=== PATIENT | male | born 1950 | race Hispanic/Latino ===

== ENCOUNTER 2021-07-13 13:58 | Inpatient (IN) | payer BC ==
[~2021-07-13] VITALS: Ht 152.4 cm; Wt 60.0 kg
[2021-07-13 14:33] LABS: BASOPHILS % (AUTO) 0.9 % (0.0-5.0); EOSINOPHILS % (AUTO) 1.1 % (0.0-8.0); HEMATOCRIT 42.3 % (42-54); LYMPHOCYTES % (AUTO) 18.9 % (21.0-51.0); MEAN CORPUSCULAR HEMOGLOBIN 30.9 pg (27.0-33.0); MEAN CORPUSCULAR HGB CONC 34.8 g/dL (32.0-36.0); MEAN CORPUSCULAR VOLUME 89.1 fL (79-99); NEUTROPHILS % (AUTO) 71.7 % (40.0-77.0); PLATELET COUNT (AUTO) 297 K/uL (130-400); RED BLOOD CELL COUNT(AUTO) 4.75 MIL/uL (4.50-6.20); RED CELL DISTRIBUTION WIDTH 12.3 % (11.0-15.5); WHITE BLOOD COUNT (AUTO) 10.8 K/uL (4.8-10.8)
[2021-07-13 14:45] LABS: CREATININE 1.2 mg/dL (0.5-1.5); INR 0.97 (0.85-1.15); POTASSIUM 4.2 mmol/L (3.5-5.1); PROTHROMBIN TIME 10.6 SEC (9.6-11.6)
[2021-07-13 14:46] LABS: PARTIAL THROMBOPLASTIN TIME 25.6 SEC (26.3-35.5)
[2021-07-13 14:49] LABS: ALBUMIN 3.8 g/dL (3.5-5.0); BILIRUBIN,TOTAL 0.5 mg/dL (0.2-1.0); TOTAL PROTEIN, SERUM 7.6 g/dL (6.0-8.3)
[2021-07-13] MEDS ORDERED: 0.9%NACL 1000ML 1,000 ML IV ONE (16:00)
[2021-07-13] MEDS ORDERED: IOHEXOL 350 MG/ML 100ML INFUS..BTL IV ONE (16:00)
[2021-07-13] MEDS ORDERED: ASPIRIN 81MG CHEW TAB PO ONE (17:00)
[2021-07-13 17:06] LABS: APPEARANCE,URINE Clear (CLEAR); BILIRUBIN,URINE Negative (NEGATIVE); COLOR,URINE Yellow (YELLOW); GLUCOSE, URINE (UA) >=1000 mg/dL (NEGATIVE); KETONES,URINE Trace mg/dL (NEGATIVE); LEUKOCYTE ESTERASE ,URINE Negative (NEGATIVE); NITRATE,URINE Negative (NEGATIVE); OCCULT BLOOD,URINE Negative (NEGATIVE); PH,URINE 5.5 (5.0-8.0); PROTEIN,URINE POS 2+ mg/dL (NEGATIVE)
[2021-07-13] MEDS ORDERED: LACTULOSE 20 GM/30 ML UDCUP PO PRN (17:30)
[2021-07-13] MEDS ORDERED: ONDANSETRON 4MG INJ IV PRN (17:30)
[2021-07-13] MEDS ORDERED: MAG/ALUM/SIMETH 30 ML UDCUP PO PRN (17:30)
[2021-07-13] MEDS ORDERED: GUAIFENESIN-DM 200/20 MG 10 ML PO PRN (17:30)
[2021-07-13] MEDS ORDERED: ACETAMINOPHEN 325 MG TAB PO PRN ×2 (17:30)
[2021-07-13 17:33] LABS: BACTERIA,URINE Rare /HPF (None Seen); MUCUS,URINE Rare LPF (None Seen); RBC,URINE 0-1 /HPF (0-1); SQUAMOUS EPITHELIAL CELL,UR Rare /HPF (0-2); WBC,URINE 0-1 /HPF (0-1)
[2021-07-13 17:52] LABS: ALCOHOL, BLOOD 6 mg/dL (0-10); CHOLESTEROL 280 mg/dL (<200); HDL CHOLESTEROL 48 mg/dL (29-71); LDL DIRECT 181 mg/dL (0-99); TRIGLYCERIDES 196 mg/dL (30-200)
[2021-07-13] MEDS: HYDRALAZINE 20MG/ML VIAL IV PRN (18:05)
[2021-07-13 19:17] LABS: AMPHET/METH SCREEN,URINE NEGATIVE (NEGATIVE); BARBITURATE SCREEN, URINE NEGATIVE (NEGATIVE); BENZODIAZEPINES SCREEN,URINE NEGATIVE (NEGATIVE); CANNABINOID SCREEN,URINE NEGATIVE (NEGATIVE); COCAINE SCREEN,URINE NEGATIVE (NEGATIVE); OPIATE SCREEN,URINE NEGATIVE (NEGATIVE); PHENCYCLIDINE SCREEN,URINE NEGATIVE (NEGATIVE)
[2021-07-14 00:10] VITALS: BP 152/85
[2021-07-14] MEDS ORDERED: METF-445 PO (00:17)
[2021-07-14] MEDS ORDERED: LISI10TA24 PO (00:17)
[2021-07-14] MEDS ORDERED: MORPHINE 2 MG SYG ONE (01:48)
[2021-07-14] MEDS ORDERED: MORPHINE 2 MG SYG IVP ONE (02:00)
[2021-07-14 04:00] VITALS: BP 130/69
[2021-07-14 05:26] LABS: HEMATOCRIT 38.1 % (42-54); MEAN CORPUSCULAR HEMOGLOBIN 30.6 pg (27.0-33.0); MEAN CORPUSCULAR HGB CONC 34.9 g/dL (32.0-36.0); MEAN CORPUSCULAR VOLUME 87.8 fL (79-99); RED BLOOD CELL COUNT(AUTO) 4.34 MIL/uL (4.50-6.20); RED CELL DISTRIBUTION WIDTH 12.3 % (11.0-15.5); WHITE BLOOD COUNT (AUTO) 8.8 K/uL (4.8-10.8)
[2021-07-14] MEDS ORDERED: DEXTROSE 50%-WATER 50 ML DISP.SYRIN IV PRN (05:30)
[2021-07-14] MEDS ORDERED: GLUCAGON 1MG KIT 1 MG ML IM PRN (05:30)
[2021-07-14 05:36] LABS: INR 0.99 (0.85-1.15); PROTHROMBIN TIME 10.8 SEC (9.6-11.6)
[2021-07-14 05:45] LABS: HEMOGLOBIN A1C 12.5 % (4.0-6.0)
[2021-07-14] MEDS: INSULIN HUMULIN R 100 UNIT/ML 3ML SQ SCH ×4 (06:00→21:55)
[2021-07-14 06:04] LABS: ALBUMIN 3.3 g/dL (3.5-5.0); BILIRUBIN,TOTAL 0.5 mg/dL (0.2-1.0); POTASSIUM 3.8 mmol/L (3.5-5.1); TOTAL PROTEIN, SERUM 6.6 g/dL (6.0-8.3)
[2021-07-14 09:32] VITALS: BP 137/78
[2021-07-14 12:00] VITALS: BP 153/90
[2021-07-14 16:00] VITALS: BP 144/46
[2021-07-14] MEDS: ASPIRIN 81MG CHEW TAB PO SCH (17:41)
[2021-07-14 20:00] VITALS: BP 139/95
[2021-07-15] VITALS: BP 139/81
[2021-07-15 05:19] VITALS: BP 119/70
[2021-07-15] MEDS: INSULIN HUMULIN R 100 UNIT/ML 3ML SQ SCH ×4 (06:59→21:51)
[2021-07-15] MEDS ORDERED: ATORVASTATIN 20 MG TABLET PO SCH (09:00)
[2021-07-15 09:03] VITALS: BP 153/88
[2021-07-15] MEDS: ASPIRIN 81MG CHEW TAB PO SCH (10:32)
[2021-07-15 11:11] VITALS: BP 167/92
[2021-07-15 16:27] VITALS: BP 150/92
[2021-07-15 20:00] VITALS: BP 175/94
[2021-07-15] MEDS: HYDRALAZINE 20MG/ML VIAL IV PRN (21:48)
[2021-07-15] MEDS: ATORVASTATIN 20 MG TABLET PO SCH (21:48)
[2021-07-16] VITALS (7 sets, daily range): BP systolic 120–160; BP diastolic 76–104
[2021-07-16] MEDS: INSULIN HUMULIN R 100 UNIT/ML 3ML SQ SCH ×4 (05:49→21:00)
[2021-07-16] MEDS: ASPIRIN 81MG CHEW TAB PO SCH (10:05)
[2021-07-16] MEDS: LISINOPRIL 10 MG TABLET PO SCH (10:05)
[2021-07-16] MEDS: HYDRALAZINE 20MG/ML VIAL IV PRN (11:51)
[2021-07-16] MEDS: CEFTRIAXONE 1G VIAL IVP SCH ×2 (12:30→17:26)
[2021-07-16 13:41] LABS: APPEARANCE,URINE Clear (CLEAR); BILIRUBIN,URINE Negative (NEGATIVE); COLOR,URINE Yellow (YELLOW); GLUCOSE, URINE (UA) >=1000 mg/dL (NEGATIVE); KETONES,URINE 15 mg/dL (NEGATIVE); LEUKOCYTE ESTERASE ,URINE Negative (NEGATIVE); NITRATE,URINE Negative (NEGATIVE); OCCULT BLOOD,URINE Negative (NEGATIVE); PROTEIN,URINE 300 mg/dL (NEGATIVE)
[2021-07-16 13:46] LABS: BACTERIA,URINE Rare /HPF (None Seen); RBC,URINE 0-1 /HPF (0-1); SQUAMOUS EPITHELIAL CELL,UR Rare /HPF (0-2); WBC,URINE 0-1 /HPF (0-1)
[2021-07-16] MEDS ORDERED: PHARMACY COMMUNICATION MISC SCH (17:30)
[2021-07-16] MEDS ORDERED: INSULIN GLARGINE 100 UNITS/ML 10 ML VIAL SQ SCH (21:00)
[2021-07-16] MEDS: ATORVASTATIN 20 MG TABLET PO SCH (22:12)
[2021-07-17 03:57] VITALS: BP 120/90
[2021-07-17] MEDS: INSULIN HUMULIN R 100 UNIT/ML 3ML SQ SCH ×3 (06:32→16:30)
[2021-07-17 07:35] LABS: BASOPHILS % (AUTO) 0.8 % (0.0-5.0); EOSINOPHILS % (AUTO) 3.4 % (0.0-8.0); HEMATOCRIT 40.2 % (42-54); LYMPHOCYTES % (AUTO) 14.4 % (21.0-51.0); MEAN CORPUSCULAR HEMOGLOBIN 30.7 pg (27.0-33.0); MEAN CORPUSCULAR HGB CONC 34.3 g/dL (32.0-36.0); MEAN CORPUSCULAR VOLUME 89.3 fL (79-99); MONOCYTES % (AUTO) 10.7 % (3.0-13.0); NEUTROPHILS % (AUTO) 70.3 % (40.0-77.0); PLATELET COUNT (AUTO) 291 K/uL (130-400); RED CELL DISTRIBUTION WIDTH 12.3 % (11.0-15.5); WHITE BLOOD COUNT (AUTO) 11.3 K/uL (4.8-10.8)
[2021-07-17 07:42] LABS: CREATININE 1.1 mg/dL (0.5-1.5); POTASSIUM 3.8 mmol/L (3.5-5.1)
[2021-07-17 08:00] VITALS: BP 141/77
[2021-07-17] MEDS ORDERED: CLOPIDOGREL 75MG TAB PO SCH (09:00)
[2021-07-17] MEDS ORDERED: OSELTAMIVIR PHOSPHATE 75 MG CAP PO SCH (09:00)
[2021-07-17] MEDS: ASPIRIN 81MG CHEW TAB PO SCH (11:12)
[2021-07-17] MEDS: LISINOPRIL 10 MG TABLET PO SCH (11:17)
[2021-07-17 12:00] VITALS: BP 141/95
[2021-07-17] MEDS ORDERED: ASPI-1197 PO (13:53)
[2021-07-17] MEDS ORDERED: GLIP5POW MC (13:53)
[2021-07-17] MEDS ORDERED: CLOP75TA14 PO (13:53)
[2021-07-17] MEDS ORDERED: ATOR20TA65 PO (14:06)
[2021-07-17] MEDS ORDERED: GLIP5TAB11 PO (15:40)
[2021-07-17 16:08] VITALS: BP 132/88
[2021-07-17] MEDS ORDERED: OSEL75 PO (17:00)
== END 2021-07-17 20:15 | disposition home or self-care (01) | DRG 65 ==
LOC: EDH 13:58 → EDHIP 17:04 → OBSVTOIN 17:04 → INTOOBSV 17:04 → 3BH 21:33
PROVIDERS: ADMIT Internal Medicine; ATTEND Internal Medicine
DX: I63.9 Cerebral infarction, unspecified (principal); G81.91 Hemiplegia, unspecified affecting right dominant side; R47.01 Aphasia; E78.5 Hyperlipidemia, unspecified; I10 Essential (primary) hypertension; Z20.822 Contact with and (suspected) exposure to COVID-19; R29.706 NIHSS score 6; G51.0 Bell's palsy; E78.00 Pure hypercholesterolemia, unspecified; E11.9 Type 2 diabetes mellitus without complications; J10.1 Influenza due to other identified influenza virus with other respiratory manifestations; W19.XXXA Unspecified fall, initial encounter; Y93.89 Activity, other specified; Y92.89 Other specified places as the place of occurrence of the external cause; Y99.8 Other external cause status
CPT/HCPCS: 36415; 70450; 70496; 70498; 70551; 71045; 80048; 80053; 80061; 80305; 81001; 82550; 82948; 83036; 83874; 84484; 85025; 85027; 85610; 85730; 87088; 87635; 87804; 92522; 92610; 93005; 93356; 97039; C8929; G0378; J0360; J0696; J1815; J7030; Q9967

== ENCOUNTER 2021-08-21 17:26 | Emergency (ER) | payer SELFPAY ==
[~2021-08-21] VITALS: Ht 152.4 cm; Wt 68.9 kg
[~2021-08-21 17:26] MED LIST: ASPI-1197 PO; ATOR20TA65 PO; CLOP75TA14 PO; GLIP5TAB11 PO; LISI10TA24 PO; METF-445 PO; OSEL75 PO
[2021-08-21] MEDS ORDERED: ASPIRIN 325MG TAB PO ONE (18:00)
[2021-08-21 18:15] LABS: BASOPHILS % (AUTO) 1.3 % (0.0-5.0); EOSINOPHILS % (AUTO) 3.4 % (0.0-8.0); LYMPHOCYTES % (AUTO) 28.4 % (21.0-51.0); MEAN CORPUSCULAR HEMOGLOBIN 30.3 pg (27.0-33.0); MEAN CORPUSCULAR HGB CONC 33.6 g/dL (32.0-36.0); MEAN CORPUSCULAR VOLUME 90.1 fL (79-99); MONOCYTES % (AUTO) 9.7 % (3.0-13.0); NEUTROPHILS % (AUTO) 56.9 % (40.0-77.0); PLATELET COUNT (AUTO) 285 K/uL (130-400); RED BLOOD CELL COUNT(AUTO) 4.33 MIL/uL (4.50-6.20); RED CELL DISTRIBUTION WIDTH 12.1 % (11.0-15.5); WHITE BLOOD COUNT (AUTO) 9.3 K/uL (4.8-10.8)
[2021-08-21 18:28] LABS: CREATININE 1.1 mg/dL (0.5-1.5)
[2021-08-21 18:42] LABS: BILIRUBIN,TOTAL 0.4 mg/dL (0.2-1.0); TOTAL PROTEIN, SERUM 7.3 g/dL (6.0-8.3)
[2021-08-21 18:43] LABS: AMYLASE 80 U/L (25-115); LIPASE 313 U/L (114-286)
[2021-08-21] MEDS ORDERED: DICYCLOMINE HCL 10 MG/5 ML ML PO ONE (19:00)
[2021-08-21] MEDS ORDERED: ONDANSETRON 4MG INJ IVP ONE (19:00)
[2021-08-21] MEDS ORDERED: 0.9%NACL 1000ML 1,000 ML IV ONE ×2 (19:00→19:17)
[2021-08-21] MEDS ORDERED: FAMOTIDINE 20MG TAB PO ONE (19:00)
[2021-08-21] MEDS ORDERED: ONDANSETRON 4MG INJ ONE (19:20)
[2021-08-21] MEDS ORDERED: DICYCLOMINE 20MG (10MG/ML) AMP IM ONE (19:20)
[2021-08-21] MEDS ORDERED: ASPIRIN 325MG TAB ONE (19:20)
[2021-08-21] MEDS ORDERED: FAMOTIDINE 20MG TAB ONE (19:20)
[2021-08-21] MEDS ORDERED: FAMO20TA8 PO (19:59)
[2021-08-21] MEDS ORDERED: DICY20TA2 PO (19:59)
[2021-08-21 20:13] VITALS: BP 178/89
[2021-08-21 20:28] LABS: APPEARANCE,URINE Clear (CLEAR); BILIRUBIN,URINE Negative (NEGATIVE); COLOR,URINE Yellow (YELLOW); GLUCOSE, URINE (UA) Negative (NEGATIVE); KETONES,URINE Negative (NEGATIVE); LEUKOCYTE ESTERASE ,URINE Negative (NEGATIVE); NITRATE,URINE Negative (NEGATIVE); OCCULT BLOOD,URINE Negative (NEGATIVE); PH,URINE 5.5 (5.0-8.0); PROTEIN,URINE POS 1+ mg/dL (NEGATIVE); UROBILINOGEN,URINE 0.2 mg/dL (0.2-1.0)
[2021-08-21 20:35] LABS: BACTERIA,URINE Rare /HPF (None Seen); RBC,URINE 0-1 /HPF (0-1); SQUAMOUS EPITHELIAL CELL,UR Few /HPF (0-2); WBC,URINE 0-1 /HPF (0-1)
== END 2021-08-21 20:57 | disposition home or self-care (01) ==
LOC: EDH 17:26
DX: A08.4 Viral intestinal infection, unspecified (principal); E11.9 Type 2 diabetes mellitus without complications; I10 Essential (primary) hypertension; Z79.82 Long term (current) use of aspirin; Z79.84 Long term (current) use of oral hypoglycemic drugs; Z79.899 Other long term (current) drug therapy; Z86.73 Personal history of transient ischemic attack (TIA), and cerebral infarction without residual deficits
CPT/HCPCS: 36415; 80053; 81001; 82150; 82550; 83690; 83874; 84484; 85025; 93005; 96361; 96374; 99284; J0500; J2405; J7030

== ENCOUNTER → 2024-01-12 | Outpatient (CLI) | payer MEDICARE ==
[~2024-01-12] MED LIST changes: +AMOX1TAB15 PO; -ATOR20TA65 PO; +ATOR40TA71 PO; -CLOP75TA14 PO; +DOCU-116 PO; +DONE10TA43 PO; +FINA5TAB41 PO; +GABA-529 PO; -GLIP5TAB11 PO; -LISI10TA24 PO; +LISI20TA24 PO; -OSEL75 PO; +SEMA7TAB2 PO; +TRAZ-185 PO
[2024-01-12] MEDS: REGADENOSON 0.4 MG/5 ML PF SYG IVP ONE (13:44)
== END | disposition home or self-care (01) ==
LOC: SHCH 08:19
PROVIDERS: ATTEND Internal Medicine Cardiovascular Disease
DX: I20.0 Unstable angina (principal)
CPT/HCPCS: 78452; 96374; 93017; J2785; A9500 ×2

== ENCOUNTER → 2025-04-19 | Outpatient (CLI) | payer OTHER ==
[~2025-04-19] MED LIST changes: +IOHEXOL 350 MG/ML 100ML INFUS..BTL IV ONE
--- NOTE | 2025-04-20 11:41 | HMCIMG ---
EXAM: CT Chest, Abdomen, and Pelvis without and With IV contrast. CLINICAL HISTORY: Follow-up of malignant neoplasm of the ascending colon. TECHNIQUE: Thin collimated axial CT images of the chest, abdomen, and pelvis were obtained, with sagittal and coronal reformatted images also submitted. A CT scan is done according to ALARA (As Low As Reasonably Achievable). CONTRAST: Omnipaque 350, 100ml. COMPARISON: X-ray chest dated September 10, 2023. FINDINGS: Chest: Mild atelectasis in the left basal segment. No collapse or consolidation. Calcified nodule in the left upper lobe. No pleural effusions. No pericardial effusion. The heart size is within normal limits. Calcification of the coronary arteries with atherosclerotic changes in the aorta. No axillary, supraclavicular, or mediastinal lymphadenopathy. No focal thyroid abnormality. Limited views of the upper abdomen demonstrate no abnormality. No acute or suspicious osseous abnormality. Abdomen and Pelvis: The gallbladder shows tiny calculi or sludge in the dependent region. There is no focal abnormality appreciated within the liver, pancreas, spleen, adrenals, or kidneys. There is mild circumferential thickening in the ascending colon measuring approximately 6mm over a length of 2.5 cm. The rest of the colon shows mild fecal loading. Small bowel is unremarkable. The appendix is normal. There is no abnormality within the urinary bladder. The prostate is enlarged, bulging into the base of the urinary bladder. Abdominal and pelvic vessels are patent. No lymphadenopathy. No free fluid. The bones under view show degenerative spondylotic changes in the spine. IMPRESSIONS: 1. Mild circumferential thickening in the ascending colon - consistent with the known malignant neoplasm of the ascending colon. No definite evidence of metastatic disease. 2. Prostatomeglay bulging into the base of the urinary bladder. Further evaluation with uroflowmetry is advised. 3. Calcified lung nodule. Lung RADS category 1. Continue annual screening with LDCT. 4. No pulmonary infiltrate or effusion. 5. Coronary artery disease with atherosclerosis. /[place]
== END | disposition home or self-care (01) ==
LOC: RAH 10:29
PROVIDERS: ATTEND Internal Medicine Gastroenterology
DX: C18.2 Malignant neoplasm of ascending colon (principal); N40.0 Benign prostatic hyperplasia without lower urinary tract symptoms; J98.11 Atelectasis; R91.1 Solitary pulmonary nodule; K63.89 Other specified diseases of intestine; I25.10 Atherosclerotic heart disease of native coronary artery without angina pectoris; I70.0 Atherosclerosis of aorta; M47.817 Spondylosis without myelopathy or radiculopathy, lumbosacral region
CPT/HCPCS: 71270; 74178; Q9967